=== PATIENT | male | born 1965 | race Caucasian/White ===

== ENCOUNTER 2017-04-08 00:06 | Emergency (ER) | payer SELFPAY ==
[2017-04-08 01:25] VITALS: BP 142/92
== END 2017-04-08 01:25 | disposition home or self-care (01) ==
LOC: ED 00:06
DX: T63.391A Toxic effect of venom of other spider, accidental (unintentional), initial encounter (principal); Y92.89 Other specified places as the place of occurrence of the external cause
CPT/HCPCS: J1170; J3010; Q0162